=== PATIENT | female | born 1985 | race Caucasian/White ===

== ENCOUNTER 2018-02-06 05:40 | Inpatient (IN) | payer BC ==
--- NOTE | 2018-02-03 08:23 | P.HPOB ---
History of Present Illness H&P Date: 02/03/18 Chief Complaint: Patient is presenting for repeat and tubal ligation. This patient is a pleasant 32-year-old 3 para 1 female estimated date of confinement 02/12/2018 estimated gestational age 39 weeks who presents to labor and delivery for elective repeat section and also requesting permanent sterilization. Patient's care has been complicated by known uterine fibroid however she has had adequate growth and no complications. Patient has had a previous section desires repeat plus a tubal ligation. Patient does understand that a tubal ligation is permanent and that there is a failure rate of approximately less than 5 per thousand procedures done. Review of Systems Gastrointestinal: Reports heartburn Genitourinary: Reports Past Medical History Additional Past Medical History / Comment(s): Known uterine fibroids. History of Any Multi-Drug Resistant Organisms: None Reported Past Surgical History: Section Past Anesthesia/Blood Transfusion Reactions: No Reported Reaction Past Psychological History: No Psychological Hx Reported Smoking Status: Never smoker Past Alcohol Use History: None Reported Past Drug Use History: None Reported Medications and Allergies Allergies Allergy/AdvReac Type Severity Reaction Status Date / Time No Known Allergies Allergy Verified 02/03/18 08:20 Exam Intake and Output 02/02/18 02/03/18 02/03/18 22:59 06:59 14:59 Other: Weight 119 kg - OBG Physical Exam Abdomen: bowel sounds normal, no diffuse tenderness, no bruit present, no guarding noted, no hepatomegaly, no splenomegaly, no mass Vulva: both: normal Vagina: normal moisture, no discharge Cervix: no lesion (Cervix in the office was closed), no discharge Uterus: enlarged (Fundal height 47 cm) Results blood work shows she is O positive, rubella immune, RPR nonreactive, hepatitis B negative, HIV is nonreactive, group B strep was negative, ultrasounds of shown large for gestational age with excellent growths and uterine fibroids. Assessment and Plan Assessment: This is a pleasant 32-year-old 3 para 1 female 39 weeks gestation with previous section requesting repeat section and also requesting permanent sterilization. Plan is repeat low transverse section and bilateral partial salpingectomy. We did discuss the surgery and risks including risks of infection, bleeding, possible injury bowel, bladder, vessels, and/or other organs. All the patient's questions have been answered and a written consent is obtained. (1) Previous delivery affecting Status: Acute Code(s): O34.219 - MATERNAL CARE FOR UNSP TYPE SCAR FROM PREVIOUS DEL SNOMED Code(s): 012034219 (2) Family planning Status: Acute Code(s): Z30.09 - ENCOUNTER FOR OT GENERAL CNSL AND ADVICE ON CONTRACEPTION SNOMED Code(s): 589943474 (3) Uterine fibroid complicating care, baby not yet delivered Status: Acute Code(s): O34.10 - MATERNAL CARE FOR BENIGN TUMOR OF CORPUS UTERI , UNSP TRI; D25.9 - LEIOMYOMA OF UTERUS, UNSPECIFIED SNOMED Code(s): 975388906 (4) Obesity Status: Acute Code(s): E66.9 - OBESITY, UNSPECIFIED SNOMED Code(s): 355305534
[2018-02-06] MEDS ORDERED: LACTATED RINGERS 1,000 ML IV ONE (05:58)
[2018-02-06] MEDS ORDERED: CITRIC ACID-SODIUM CITRATE 15 ML CUP PO ONE (05:58)
[2018-02-06] MEDS ORDERED: LACTATED RINGERS 1,000 ML IV SCH (05:58)
[2018-02-06 06:17] VITALS: BMI 50.8
[2018-02-06 06:42] LABS: Basophils % (A) 0 %; Eosinophils # (A) 0.1 k/uL (0-0.7); Eosinophils % (A) 1 %; HCT 31.6 % (34.0-46.0); Hypochromasia Slight; Lymphocytes # (A) 1.6 k/uL (1.0-4.8); Lymphocytes % (A) 20 %; MCH 27.3 pg (25.0-35.0); MCHC 31.5 g/dL (31.0-37.0); MCV 86.8 fL (80.0-100.0); Mean Platelet Volume 7.3; Monocytes # (A) 0.5 k/uL (0-1.0); Monocytes % (A) 6 %; Neutrophils # (A) 5.5 k/uL (1.3-7.7); Neutrophils % (A) 69 %; Platelet Count 381 k/uL (150-450); RBC 3.65 m/uL (3.80-5.40); RDW 15.2 % (11.5-15.5); WBC 7.9 k/uL (3.8-10.6)
[2018-02-06] MEDS ORDERED: ceFAZolin 3 GM in SODIUM CHLORIDE 0.9% 100 ML IVPB ONE (07:00)
[2018-02-06] MEDS ORDERED: HYDROmorphone (PF) 1 MG/ML ONE (07:47)
[2018-02-06] MEDS ORDERED: ONDANSETRON 4 MG/2 ML VIAL ONE (07:47)
[2018-02-06] MEDS ORDERED: DEXAMETHASONE SOD PHOS (MDV) 100 MG/10 ML VIAL ONE (07:47)
[2018-02-06] MEDS ORDERED: OXYTOCIN 10 UNIT/ML 1 ML VIAL ONE (07:47)
[2018-02-06] MEDS ORDERED: MIDAZOLAM 2 MG/2 ML VIAL ONE (07:47)
[2018-02-06] MEDS ORDERED: PHENYLEPHRINE-0.9% NACL SYG 1 MG/10 ML SYRINGE ONE (07:47)
[2018-02-06] MEDS ORDERED: MORPHINE SULFATE (PF) 0.3 MG/0.3 ML SYR ONE (07:47)
[2018-02-06] MEDS ORDERED: NALBUPHINE 10 MG/ML VIAL (10ML MDV) ONE (07:47)
[2018-02-06] MEDS ORDERED: ZOLPIDEM 5 MG TAB PO PRN (08:41)
[2018-02-06] MEDS ORDERED: SIMETHICONE 80 MG CHEWABLE PO PRN (08:41)
[2018-02-06] MEDS ORDERED: NALOXONE 0.4 MG/ML 1 ML VIAL IV PRN (08:41)
[2018-02-06] MEDS ORDERED: ACETAMINOPHEN TAB 325 MG TAB PO PRN (08:41)
[2018-02-06] MEDS ORDERED: LANOLIN CREAM 5 GM TUBE TOPICAL PRN (08:41)
[2018-02-06] MEDS ORDERED: diphenhydrAMINE 50 MG/ML 1 ML VIAL IVP PRN (08:41)
[2018-02-06] MEDS ORDERED: HYDROcodone/APAP 5-325MG 1 EACH TAB PO PRN (08:41)
[2018-02-06] MEDS ORDERED: ONDANSETRON 4 MG/2 ML VIAL IVP PRN (08:41)
[2018-02-06] MEDS ORDERED: METOCLOPRAMIDE 5 MG/ML 2 ML VIAL IVP PRN (08:41)
[2018-02-06] MEDS ORDERED: OXYTOCIN 20 UNITS/1000 ML NS 1,000 ML IV SCH (08:41)
[2018-02-06] MEDS ORDERED: diphenhydrAMINE 25 MG CAP PO PRN (08:41)
--- NOTE | 2018-02-06 08:43 | P.OP ---
Date of Procedure: 02/06/18 Preoperative Diagnosis: #1: 39 and one sevenths week intrauterine . #2: Previous section desires repeat. #3: Multi parity desires permanent sterilization Postoperative Diagnosis: Same Procedure(s) Performed: Repeat low transverse section and bilateral partial salpingectomy. Anesthesia: spinal Surgeon: Bryce Wang [employer]ipeline [employer] Inspector #1: Kelle Valdez Estimated Blood Loss (ml): 1,000 Pathology: other (Bilateral fallopian tube segments) Condition: stable Disposition: floor Indications for Procedure: Please see dictated H&P for intimate details of this patient's admission. Brief summary this is a pleasant 32-year-old 3 para 1 female 39 and one sevenths weeks gestation who is admitted to labor and delivery for elective repeat section and also requesting permanent sterilization. Patient understands a tubal ligation is permanent however there is a failure rate of approximately 5 or less per thousand procedures done. She understands surgery has risks including risks of infection, bleeding, possible injury bowel, bladder , vessels, and/or other organs. She understands risk of DVT and pulmonary embolism. All the patient's questions are answered and a written consent is obtained. Operative Findings: This is a vigorous viable female infant Apgars 8 and 9 delivery time was 0804 hrs. The patient had multiple omental adhesions from her previous section she also had an anterior placenta which had to be delivered through. Description of Procedure: This patient has a Simmons catheter placed to straight drain. She is subsequently taken to the operating room where she sat up and spinal anesthetic is administered. An adequate level of anesthesia she has abdominal prep and drape. Scalpels and taken in the previous Pfannenstiel incision is incised. A second scalpel is taken down the fascia the fascia scored with a knife. Fascial incision extended bilaterally using Desai scissors. Fascia is dissected sharply off the rectus muscles. It is obvious there is omental adhesions to the peritoneum from previous section. The peritoneum was carefully dissected and extended. The bladder blade is then placed. There is also multiple adhesions to the lower uterine segment and the bladder area as well. For this reason I go up little bit higher on the incision to avoid the bladder altogether. A low transverse uterine incision is then made using a hemostat I into the uterine cavity. Is obvious the placenta is in this area. I bluntly go through the placenta then guided head through the incision. Fundal pressure with delivery of this 's head. Bulb suctioned. Is no evidence of nuchal cord then have delivery anterior and posterior shoulder and rest this 's body. This is a vigorous viable female infant Apgars are 8 and 9 delivery time is 0804 hrs. After delivery of the infant the umbilical cord is doubly clamped and cut appears to be trivascular. The placenta is then manually extracted in multiple pieces. The anterior part of the uterus is quite ratty however all of the tissue was thought to be removed. With this done the uterine incision then demarcated with Tejada clamps and closed using 0 Vicryl running locked fashion. The 2 layer closure and good hemostasis is noted. I then turned my attention to the left fallopian tube and approximately 4 cm from the cornual insertion I make a small window through the mesial salpinx with Bovie cautery. Using a 2-0 silk I doubly ligate a 2 cm segment of the tube. The segment is handed off to pathology and the tubal ends are cauterized. Similar technique is done on the right side with similar results. This done next this fluid is removed from the abdomen and pelvis. Uterus placed back into the abdomen. Again the tubal ends are inspected and found be hemostatic. The uterine incision inspected and found to be hemostatic. This completed the rectus muscles are then reapproximated using interrupted 0 Vicryl suture. The fascia is then identified and closed using 0 PDS in a running fashion. Fascial incision is intact and hemostatic. Subcutaneous tissues and reapproximated using a 3-0 Vicryl. Skin is and closed using yoandy. All counts are correct 3. There are no complications. and mother are taken to the birthing suite in satisfactory condition.
[2018-02-06] MEDS: LACTATED RINGERS 1,000 ML IV SCH ×2 (10:17→16:32)
[2018-02-06] MEDS: IRON AG/C/B12/CA/SUC.ACID/STOM 1 EACH TAB PO SCH (10:27)
[2018-02-06] MEDS: SENNOSIDES-DOCUSATE SODIUM 1 EACH TAB PO SCH ×2 (11:15→19:55)
[2018-02-06 11:41] LABS: Basophils % (A) 0 %; Eosinophils % (A) 0 %; HGB 9.3 gm/dL (11.4-16.0); Hypochromasia Slight; Lymphocytes # (A) 0.9 k/uL (1.0-4.8); Lymphocytes % (A) 6 %; MCH 26.7 pg (25.0-35.0); MCHC 31.1 g/dL (31.0-37.0); MCV 85.9 fL (80.0-100.0); Mean Platelet Volume 7.5; Monocytes # (A) 0.4 k/uL (0-1.0); Monocytes % (A) 3 %; Neutrophils # (A) 13.4 k/uL (1.3-7.7); Neutrophils % (A) 91 %; Platelet Count 337 k/uL (150-450); RBC 3.49 m/uL (3.80-5.40); RDW 15.1 % (11.5-15.5); WBC 14.7 k/uL (3.8-10.6)
[2018-02-06] MEDS: KETOROLAC 30 MG/ML 1 ML VIAL IVP PRN (16:31)
[2018-02-07] MEDS: KETOROLAC 30 MG/ML 1 ML VIAL IVP PRN (00:55)
--- NOTE | 2018-02-07 06:22 | P.PNOBGPC ---
Subjective - Subjective Patient reports: Reports appetite normal, Reports voiding normally, Reports pain well controlled, Reports ambulating normally : doing well Objective - Vital Signs Latest vital signs: Vital Signs Temp Pulse Resp BP Pulse Ox 02/07/18 04:00 97.9 F 81 16 117/67 97 02/07/18 02:00 16 02/07/18 00:00 97.9 F 82 16 119/85 97 02/06/18 22:00 16 02/06/18 20:00 98.0 F 73 16 108/64 97 02/06/18 14:30 97.6 F 69 16 99/55 02/06/18 10:35 98.6 F 68 14 115/63 99 02/06/18 10:05 58 L 16 113/57 99 02/06/18 09:35 56 L 14 100/62 97 02/06/18 09:20 67 16 108/55 97 02/06/18 09:05 98.2 F 58 L 16 111/56 94 L 02/06/18 08:50 64 14 112/57 94 L 02/06/18 08:35 97.9 F 82 14 118/58 94 L Intake and Output 02/06/18 02/06/18 02/07/18 14:59 22:59 06:59 Intake Total 600 Output Total 1200 650 300 Balance -1200 -650 300 Intake: Other 600 Output: Urine 200 650 300 Estimated Blood Loss 1000 Other: # Voids 1 1 - Exam Lungs: bilateral: normal Chest: Normal S1, Normal S2 Extremities: Present: normal Abdomen: Present: normal appearance, soft. Absent: distention, tenderness Incision: Present: normal, dry, intact Uterus: Present: normal, firm - Labs Labs: Abnormal Lab Results - Last 24 Hours (Table) 02/06/18 02/06/18 Range/Units 06:30 11:09 WBC 14.7 H (3.8-10.6) k/uL RBC 3.65 L 3.49 L (3.80-5.40) m/uL Hgb 10.0 L 9.3 L (11.4-16.0) gm/dL Hct 31.6 L 30.0 L (34.0-46.0) % Neutrophils # 13.4 H (1.3-7.7) k/uL Lymphocytes # 0.9 L (1.0-4.8) k/uL Assessment and Plan Assessment: Post operative day #1. Patient is resting without complaints. Vital signs are stable she's afebrile. Uterus is firm nontender and her incision is intact and dry. My impression is that this is a normal post operative course. Plan is to check a CBC, encourage ambulation, advance her diet, and allow her to shower. Most likely home tomorrow or the following day. (1) Previous delivery affecting Current Visit: No Status: Acute Code(s): O34.219 - MATERNAL CARE FOR UNSP TYPE SCAR FROM PREVIOUS DEL SNOMED Code(s): 090015308 (2) Family planning Current Visit: No Status: Acute Code(s): Z30.09 - ENCOUNTER FOR OT GENERAL CNSL AND ADVICE ON CONTRACEPTION SNOMED Code(s): 325179081 (3) Uterine fibroid complicating care, baby not yet delivered Current Visit: No Status: Acute Code(s): O34.10 - MATERNAL CARE FOR BENIGN TUMOR OF CORPUS UTERI, UNSP TRI; D25.9 - LEIOMYOMA OF UTERUS, UNSPECIFIED SNOMED Code(s): 135652551 (4) Obesity Current Visit: No Status: Acute Code(s): E66.9 - OBESITY, UNSPECIFIED SNOMED Code(s): 203360656
[2018-02-07 07:13] LABS: Basophils % (A) 0 %; Eosinophils % (A) 0 %; HCT 25.1 % (34.0-46.0); HGB 7.9 gm/dL (11.4-16.0); Hypochromasia Slight; Lymphocytes # (A) 1.7 k/uL (1.0-4.8); Lymphocytes % (A) 17 %; MCHC 31.5 g/dL (31.0-37.0); MCV 85.9 fL (80.0-100.0); Monocytes # (A) 0.6 k/uL (0-1.0); Monocytes % (A) 6 %; Neutrophils # (A) 7.3 k/uL (1.3-7.7); Neutrophils % (A) 75 %; Platelet Count 317 k/uL (150-450); RBC 2.92 m/uL (3.80-5.40); RDW 15.1 % (11.5-15.5); WBC 9.7 k/uL (3.8-10.6)
--- NOTE | 2018-02-07 07:33 | P.PAINPG ---
Subjective Progress Note Date: 02/07/18 Principal diagnosis: s/p c section delivery Objective - Vital Signs Vital signs: Vital Signs Temp 97.9 F 02/07/18 04:00 Pulse 81 02/07/18 04:00 Resp 16 02/07/18 06:00 BP 117/67 02/07/18 04:00 Pulse Ox 97 02/07/18 04:00 Intake & Output 02/06/18 02/07/18 02/07/18 18:59 06:59 18:59 Intake Total 600 Output Total 1600 550 Balance -1600 50 Intake: Other 600 Output: Urine 600 550 Estimated Blood Loss 1000 Other: # Voids 1 - Constitutional General appearance: Present: cooperative - Respiratory Respiratory: bilateral: CTA - Cardiovascular Rhythm: regular - Neurologic Neurologic Comment(s): full range of motion back, normal sensation - Musculoskeletal Musculoskeletal Comment(s): strength 5/5, bowel and bladder function back to normal - Labs CBC & Chem 7: 02/06/18 11:09 Labs: Abnormal Lab Results - Last 24 Hours (Table) 02/06/18 Range/Units 11:09 WBC 14.7 H (3.8-10.6) k/uL RBC 3.49 L (3.80-5.40) m/uL Hgb 9.3 L (11.4-16.0) gm/dL Hct 30.0 L (34.0-46.0) % Neutrophils # 13.4 H (1.3-7.7) k/uL Lymphocytes # 0.9 L (1.0-4.8) k/uL Assessment and Plan Assessment: no follow up needed Plan: continue with current medication regimen, treat pain PRN PQRS Measure Charge Sheet PQRS Narrative: Smoking Status Never smoker Blood Pressure [Right Arm 117/67 Sitting] Pain Intensity [None] 0 Pain Intensity 0 Pain Scale Used Numeric (1 - 10) Scale Used Numeric (1 - 10) Home Medications: Ambulatory Orders Multivitamin with Iron [Multivitamins with Iron] 1 each PO DAILY 02/03/18 Controlled Substance Measures - Controlled Substance Measures Is patient prescribed a controlled substance at discharge?: No
[2018-02-07] MEDS: SENNOSIDES-DOCUSATE SODIUM 1 EACH TAB PO SCH ×2 (08:46→19:31)
[2018-02-07] MEDS: IRON AG/C/B12/CA/SUC.ACID/STOM 1 EACH TAB PO SCH (09:00)
[2018-02-07] MEDS: IBUPROFEN 600 MG TAB PO PRN ×2 (12:07→17:55)
[2018-02-08 00:03] VITALS: PULSE 84; RESP 16
[2018-02-08] MEDS: IBUPROFEN 600 MG TAB PO PRN (05:00)
--- NOTE | 2018-02-08 06:10 | P.PNOBGPC ---
Subjective - Subjective Patient reports: Reports appetite normal, Reports voiding normally, Reports pain well controlled, Reports ambulating normally : doing well Objective - Vital Signs Latest vital signs: Vital Signs Temp Pulse Resp BP Pulse Ox 02/08/18 00:00 98.0 F 84 16 139/80 02/07/18 15:20 98.3 F 95 15 120/68 02/07/18 08:00 98.1 F 80 18 117/73 98 Intake and Output 02/07/18 02/07/18 02/08/18 14:59 22:59 06:59 Other: # Voids 1 - Exam Lungs: bilateral: normal Chest: Normal S1, Normal S2 Extremities: Present: normal Abdomen: Present: normal appearance, soft. Absent: distention, tenderness Incision: Present: normal, dry, intact Uterus: Present: normal, firm - Labs Labs: Abnormal Lab Results - Last 24 Hours (Table) 02/07/18 Range/Units 06:46 RBC 2.92 L (3.80-5.40) m/uL Hgb 7.9 L (11.4-16.0) gm/dL Hct 25.1 L (34.0-46.0) % Assessment and Plan Assessment: Post operative day #2. Patient is resting without complaints and wishes to go home. Vital signs are stable she is afebrile. Hemoglobin yesterday was 7.9 preoperatively was 10 since appropriate given the blood loss. Patient's ambulating and urinating without difficulty. She's tolerating regular diet. My impression is that this is a normal postoperative course. She does have chronic anemia and I think she is stable for discharge home follow up with me in 1 week. (1) Previous delivery affecting Current Visit: No Status: Acute Code(s): O34.219 - MATERNAL CARE FOR UNSP TYPE SCAR FROM PREVIOUS DEL SNOMED Code(s): 294451766 (2) Family planning Current Visit: No Status: Acute Code(s): Z30.09 - ENCOUNTER FOR OTH GENERAL CNSL AND ADVICE ON CONTRACEPTION SNOMED Code(s): 227344903 (3) Uterine fibroid complicating care, baby not yet delivered Current Visit: No Status: Acute Code(s): O34.10 - MATERNAL CARE FOR BENIGN TUMOR OF CORPUS UTERI, UNSP TRI; D25.9 - LEIOMYOMA OF UTERUS, UNSPECIFIED SNOMED Code(s): 482065108 (4) Obesity Current Visit: No Status: Acute Code(s): E66.9 - OBESITY, UNSPECIFIED SNOMED Code(s): 687482116
--- NOTE | 2018-02-08 06:18 | P.DS ---
Providers Date of admission: 02/06/18 05:40 Expected date of discharge: 02/08/18 Attending physician: Bryce Wang Primary care physician: Stated None - Discharge Diagnosis(es) (1) Previous delivery affecting Current Visit: No Status: Acute (2) Family planning Current Visit: No Status: Acute (3) Uterine fibroid complicating care, baby not yet delivered Current Visit: No Status: Acute (4) Obesity Current Visit: No Status: Acute Hospital Course: Please see dictated H&P for intimate details of this patient's admission. Brief summary this is a pleasant 32-year-old 3 para 1 female 39 and one sevenths weeks gestation who is admitted to labor and delivery for elective repeat section and tubal ligation. Patient undergoes above-named surgery. Please see dictated operative note. Postoperative and 2 patient's felt be stable for discharge home follow up with me in 1 week. Procedures: Repeat low transverse section and bilateral partial salpingectomy. Patient Condition at Discharge: Good Plan - Discharge Summary New Discharge Prescriptions: New HYDROcodone/APAP 5-325MG [[place] 5-325] 1 each PO Q4HR PRN #18 tab PRN Reason: Moderate Pain Ibuprofen [Motrin] 600 mg PO Q6HR PRN #40 tab PRN Reason: Mild Pain Or Fever >= 100.5 Iron Ag/C/B12/Ca/Suc.acid/Stom [Chromagen LF] 1 each PO DAILY #30 tab No Action Multivitamin with Iron [Multivitamins with Iron] 1 each PO DAILY Discharge Medication List Multivitamin with Iron [Multivitamins with Iron] 1 each PO DAILY 02/03/18 [ History] HYDROcodone/APAP 5-325MG [[place] 5-325] 1 each PO Q4HR PRN #18 tab 02/08/18 [Rx] Ibuprofen [Motrin] 600 mg PO Q6HR PRN #40 tab 02/08/18 [Rx] Iron Ag/C/B12/Ca/Suc.acid/Stom [Chromagen LF] 1 each PO DAILY #30 tab 02/08/18 [ Rx] Follow up Appointment(s)/Referral(s): Bryce Wang MD [STAFF PHYSICIAN] - 02/16/18 1:30 pm (Patient also has a visit on March 20 at 11:15 AM.) Patient Instructions/Handouts: (DC), Iron Deficiency Anemia (DC) Activity/Diet/Wound Care/Special Instructions: No heavy lifting or strenuous activity for 6 weeks. No intercourse or anything per vagina for 6 weeks. Please call if any fever, chills, excessive vaginal bleeding, and/or abdominal pain. Discharge Disposition: HOME SELF-CARE
[2018-02-08] MEDS: SENNOSIDES-DOCUSATE SODIUM 1 EACH TAB PO SCH (08:06)
[2018-02-08] MEDS: IRON AG/C/B12/CA/SUC.ACID/STOM 1 EACH TAB PO SCH (08:06)
[2018-02-08 08:22] VITALS: BP 121/68; TEMP 98.4
== END 2018-02-08 09:49 | disposition home or self-care (01) | DRG 765 ==
LOC: 4FBP 05:40
PROVIDERS: ADMIT Obstetrics & Gynecology; ATTEND Obstetrics & Gynecology
PROC: 0UB70ZZ Excision of Bilateral Fallopian Tubes, Open Approach (ICD-10-PCS; principal; 2018-02-06 08:00)
PROC: 10D00Z1 Extraction of Products of Conception, Low, Open Approach (ICD-10-PCS; principal; 2018-02-06 08:00)
DX: O34.211 Maternal care for low transverse scar from previous cesarean delivery (principal); Z68.43 Body mass index [BMI] 50.0-59.9, adult; Z37.0 Single live birth; O99.02 Anemia complicating childbirth; O34.13 Maternal care for benign tumor of corpus uteri, third trimester; D64.9 Anemia, unspecified; O99.214 Obesity complicating childbirth; E66.9 Obesity, unspecified; Z3A.39 39 weeks gestation of pregnancy; Z30.2 Encounter for sterilization
CPT/HCPCS: 85025; 86850; 86900; 86901; 88302